=== PATIENT | female | born 1995 | race Caucasian/White ===

== ENCOUNTER 2020-08-24 14:10 | Observation (INO) | payer OTHER, SELFPAY ==
[2020-08-24] VITALS (7 sets, daily range): BP systolic 114–131; BP diastolic 64–74; PULSE 81–100; RESP 16; TEMP 37.2; BMI 28.3
--- NOTE | ~2020-08-24 | US_ITS ---
EXAMINATION: US OB limited DATE: 08/24/2020 16:08 INDICATION: Right lateral abdominal pain. Estimated gestational age of 29 weeks and 5 days. TECHNIQUE: Real-time ultrasound of the pelvis was performed. COMPARISON: None. FINDINGS: There is a single fetus in vertex presentation. The placenta is posterior. heart rate is 139 b eats per minute (bpm). The amniotic fluid volume is subjectively normal. The cervical length is 3.7 c m on transvaginal images, which is normal. IMPRESSION: 1. Single living fetus in vertex presentation. 2. Normal placenta and cervical length. Reviewed, dictated and finalized at location A.
--- NOTE | 2020-08-24 14:53 | OBADM ---
This patient, Fabi Lee, admitted to the OB room 116 at 1410 for observation for right sided abdominal pain. Patient/family oriented to hospital policies and general routines including ID bracelet, bed and alarms, visiting hours, pain management, procedures, bathroom and other care routines, personal items, smoking policy, room service/diet, and visiting hours. Patient/Family are encouraged to report perceived risks to care and to ask questions if they do not understand what they are told or what they should do.
[2020-08-24 15:09] LABS: Add Urine Microscopic? YES; Amorphous Sediment Urine Few; Appearance Urine Cloudy (Clear); Bacteria Urine Trace /hpf; Bilirubin Urine Negative (Negative); Blood Urine Negative (Negative); Color Urine Yellow (Yellow); Glucose Urine UA Negative (Negative); Ketones Urine Negative (Negative); Leukocyte Esterase Ur 1+ LEU/UL (Negative); Mucus Urine Rare /lpf; Nitrate Urine Negative (Negative); Protein Urine Negative (Negative); RBC Urine 0-2 /hpf (0-2); Specific Grav Ur 1.015 (1.001-1.035); Squamous Epithelial Cell Urine Moderate /hpf (Few); Urobilinogen Urine Negative mg/dL (<2.0)
[2020-08-24] MEDS: TERBUTALINE SULFATE 1 MG/ML VIAL 0.25 MG SUB-Q ×2 (15:36→17:03)
[2020-08-24 15:46] LABS: Hematocrit 36.7 % (37.0-47.0); Hemoglobin 12.2 g/dL (12.0-15.0); Mean Corpuscular HGB Conc 33.2 g/dl (32-36); Mean Corpuscular Volume 93.1 fl (80-100); Mean Platelet Volume 11.1 fl (7.4-10.4); Platelet Count Result 194 k/mm3 (150-375); Red Blood Count 3.94 M/mm3 (4.2-5.4); Red Cell Distribution Width 12.5 % (11.5-14.5); White Blood Count 15.7 K/mm3 (4.5-10.0)
[2020-08-24 15:58] LABS: Alanine Aminotransferase 13 U/L (4-35); Albumin Level 3.8 g/dL (3.5-5.1); Alkaline Phosphatase 90 U/L (38-126); Anion Gap 4 mmol/L (8-16); Aspartate Amino Transferase 22 U/L (14-36); Bilirubin,Total 0.2 mg/dL (0.2-1.3); Blood Urea Nitrogen 11 mg/dL (7-17); Calcium 9.3 mg/dL (8.4-10.2); Carbon Dioxide 27 mmol/L (22-30); Chloride 104 mmol/L (98-107); Estimated CRCL calculation 105 ml/min; Estimated Glomerular Filt Rate > 60; Glucose 91 mg/dL (65-105); Potassium 4.5 mmol/L (3.4-5.0); Sodium 135 mmol/L (137-145)
--- NOTE | 2020-08-24 17:40 | P.PNOB_ITS ---
OB - Triage/Final Diagnosis Visit Information Reason for evaluation: threatened labor Comments/Additional reasons for admission: I have assessed the risk for this patient, Fabi Lee, and determined that she would benefit from observation care. Evaluation Laboratory results: Laboratory Tests 08/24/20 08/24/20 08/24/20 14:47 15:34 15:34 WBC 15.7 H RBC 3.94 L Hgb 12.2 Hct 36.7 L MCV 93.1 MCH 31.0 MCHC 33.2 RDW 12.5 Plt Count 194 MPV 11.1 H Sodium 135 L Potassium 4.5 Chloride 104 Carbon Dioxide 27 Anion Gap 4 L BUN 11 Creatinine 0.70 Estim Creat Clear Calc 105 Estimated GFR > 60 Glucose 91 Calcium 9.3 Total Bilirubin 0.2 AST 22 ALT 13 Alkaline Phosphatase 90 Total Protein 7.0 Albumin 3.8 Urine Color Yellow Urine Appearance Cloudy H Urine pH 6.0 Ur Specific [place] 1.015 Urine Protein Negative Urine Glucose (UA) Negative Urine Ketones Negative Ur Blood (Man) Negative Urine Nitrate Negative Urine Bilirubin Negative Urine Urobilinogen Negative Leukocyte Esterase Rfl 1+ H Urine RBC 0-2 Urine WBC 7-9 H Ur Squamous Epith Cells Moderate H Amorphous Sediment Few H Urine Bacteria Trace Urine Mucus Rare Vital signs: Vital Signs - 24 hr 08/24/20 14:33 08/24/20 14:45 08/24/20 15:00 Temperature 99 F Pulse Rate 93 88 85 Respiratory Rate 16 Blood Pressure 131/70 124/67 119/71 08/24/20 15:36 08/24/20 16:12 08/24/20 17:00 Temperature Pulse Rate 81 100 95 Respiratory Rate Blood Pressure 124/74 114/68 122/64
== END 2020-08-24 18:55 | disposition home or self-care (01) ==
PROVIDERS: Admitting Provider Obstetrics & Gynecology; Visit Provider Obstetrics & Gynecology
DX: O47.03 False labor before 37 completed weeks of gestation, third trimester (principal); Z3A.29 29 weeks gestation of pregnancy
CPT/HCPCS: 36415; 76815; 80053; 81001; 85027; 87086; 96372; G0378; G0379; J3105

== ENCOUNTER 2020-10-18 03:17 | Inpatient (IN) | payer OTHER, SELFPAY ==
[2020-10-18] VITALS (58 sets, daily range): BP systolic 91–152; BP diastolic 34–115; PULSE 54–111; RESP 20; TEMP 36.5–37.2; O2SAT 99–100; BMI 30.2
[2020-10-18] MEDS: LACTATED RINGERS 1,000 ML 125 ML IV CONT ×5 (04:20→11:53)
[2020-10-18 04:21] LABS: Basophils Percent Auto 0.5 % (0.2-1.2); Eosinophils Absolute Auto 0.1 K/mm3 (0-0.3); Eosinophils Percent Auto 1.5 % (0-4.4); Hematocrit 35.5 % (37.0-47.0); Hemoglobin 11.7 g/dL (12.0-15.0); Immature Granulocyte Percent A 1.2 % (0-0.5); Lymphocytes Absolute Auto 2.05 K/mm3 (0.9-3.2); Lymphocytes Percent Auto 23.9 % (18.3-44.2); Mean Corpuscular Hemoglobin 29.9 pg (26-34); Mean Corpuscular Volume 90.8 fl (80-100); Mean Platelet Volume 11.8 fl (7.4-10.4); Monocytes Absolute Auto 0.7 K/mm3 (0.1-0.6); Monocytes Percent Auto 7.6 % (2.6-8.5); Neutrophils Absolute Auto 5.6 K/mm3 (1.3-6.7); Neutrophils Percent Auto 65.3 % (45.5-73.1); Platelet Count Result 197 k/mm3 (150-375); Red Blood Count 3.91 M/mm3 (4.2-5.4); Red Cell Distribution Width 12.7 % (11.5-14.5); White Blood Count 8.6 K/mm3 (4.5-10.0)
--- NOTE | 2020-10-18 06:10 | WPDANESEPP ---
Anes - Eval Pre Procedure Procedure: Labor epidural Date/Time: 10/18/20 06:10 Surgeon: chrissy Preop Diagnosis: Abd pain with contractions Pre Op Diagnosis: SROM Patient Data Age: 25 Gender: F Height: 5 ft 4 in Weight: 80 kg Last Vital Signs Temp 97.8 F 10/18/20 04:20 Pulse 74 10/18/20 05:46 BP 134/83 10/18/20 05:46 Allergies Allergy/AdvReac Type Severity Reaction Status Date / Time No Known Allergies Allergy Verified 10/07/20 15:35 Home Medications Medication Instructions Recorded Confirmed Type PNV cmb#95-ferrous fumarate-FA 1 tablet PO DAILY 08/24/20 08/24/20 History [] Laboratory Tests 10/18/20 03:51 WBC 8.6 K/mm3 K/mm3 (4.5-10.0) RBC 3.91 M/mm3 L M/mm3 (4.2-5.4) Hgb 11.7 g/dL L g/dL (12.0-15.0) Hct 35.5 % L % (37.0-47.0) MCV 90.8 fl fl (80-100) MCH 29.9 pg pg (26-34) MCHC 33.0 g/dl g/dl (32-36) RDW 12.7 % % (11.5-14.5) Plt Count 197 k/mm3 k/mm3 (150-375) MPV 11.8 fl H fl (7.4-10.4) Immature Gran % (Auto) 1.2 % H % (0-0.5) Neut % (Auto) 65.3 % % (45.5-73.1) Lymph % (Auto) 23.9 % % (18.3-44.2) [place] % (Auto) 7.6 % % (2.6-8.5) Eos % (Auto) 1.5 % % (0-4.4) Baso % (Auto) 0.5 % % (0.2-1.2) Lymph # (Auto) 2.05 K/mm3 K/mm3 (0.9-3.2) [place] # (Auto) 0.7 K/mm3 H K/mm3 (0.1-0.6) Eos # (Auto) 0.1 K/mm3 K/mm3 (0-0.3) Baso # (Auto) 0.0 K/mm3 K/mm3 (0.0-0.1) Abs Immat Gran (auto) 0.10 K/mm3 H K/mm3 (0.00-0.031) Absolute Neuts (auto) 5.6 K/mm3 K/mm3 (1.3-6.7) Absolute Nucleated RBC 0.0 K/mm3 K/mm3 (0.0-0.012) Nucleated RBC % 0.0 % % (0.0-0.2) Patient hx anesthesia problems: none Family hx anesthesia problems: none [facility] Past Medical History Medical History Anxiety Over weight and not yet delivered Family History Family History Father Schizophrenia Bipolar 1 disorder Type 2 diabetes mellitus Testicle cancer Depression Sibling ALL (acute lymphoblastic leukemia) CML (chronic myelocytic leukemia) FH: bone marrow transplant Grandparent Cerebrovascular accident Schizophrenia Bipolar 1 disorder Depression Breast cancer in female Lung cancer Social History Social History Smoking status: Never smoker Substance use: never Spiritual care concerns: No Exam Day of Procedure 10/18/20 06:10 Patient weight: overweight Airway: Mallampati scale class II Neurological: alert and oriented
[2020-10-18 06:47] LABS: Rapid Plasma Reagin Non-Reactive (NonReactive)
--- NOTE | 2020-10-18 07:18 | PM.IMHP ---
H&P: HPI History of Present Illness Date/Time: 10/18/20 07:18 25-year-old para 0 whose last menstrual period was 01/29/2020, EDC 11/04/2020, presents at 37 and half weeks gestation with spontaneous rupture membranes prior to admission. Her has been uncomplicated and she is negative for group B strep Chief Complaint: Ruptured membranes Review of Systems Review of Systems: All systems reviewed & are unremarkable except as noted in HPI and below PMFSH Past Medical History Medical History Anxiety Over weight and not yet delivered Family History Family History Father Schizophrenia Bipolar 1 disorder Type 2 diabetes mellitus Testicle cancer Depression Sibling ALL (acute lymphoblastic leukemia) CML (chronic myelocytic leukemia) FH: bone marrow transplant Grandparent Cerebrovascular accident Schizophrenia Bipolar 1 disorder Depression Breast cancer in female Lung cancer Social History Social History Smoking status: Never smoker Substance use: never Spiritual care concerns: No Meds Home Medications and Allergies Home Medications Medication Instructions Recorded Confirmed Type PNV cmb#95-ferrous fumarate-FA 1 tablet PO DAILY 08/24/20 08/24/20 History [] Allergies Allergy/AdvReac Type Severity Reaction Status Date / Time No Known Allergies Allergy Verified 10/07/20 15:35 Vital Signs Vital Signs - 24 hr 10/18/20 03:45 10/18/20 04:20 10/18/20 04:30 Temperature 97.8 F Pulse Rate 72 72 Blood Pressure 134/80 126/87 10/18/20 04:45 10/18/20 05:15 10/18/20 05:31 Temperature Pulse Rate 76 62 78 Blood Pressure 118/73 128/81 123/81 10/18/20 05:46 10/18/20 06:15 10/18/20 06:30 Temperature Pulse Rate 74 65 63 Blood Pressure 134/83 129/81 123/82 10/18/20 07:01 10/18/20 07:15 Temperature Pulse Rate 67 78 Blood Pressure 131/78 122/75 Exam Const: General: no acute distress Eyes: General: appearance normal, both eyes and all related structures Neck: Neck: supple and no JVD Thyroid: thyroid normal Resp: Effort & Inspection: normal respiratory effort Auscultation: clear to auscultation bilaterally Cardio: Rate: regular rate Rhythm: regular rhythm GI: Inspection: non-distended GI Palp: Yes Soft to palpation, No Tenderness to palpation present (GI) and No Guarding due to palpation present (GI) Auscultation: normal bowel sounds : General: Yes bladder normal to palpation External Female Exam: normal external appearance Speculum Exam - Vagina: normal vaginal discharge and No vaginal bleeding Speculum Exam - Cervix: nontender Bimanual exam- vagina & uterus: bladder normal to palpation and No Cervical tenderness present OB/external & speculum: No vaginal bleeding Skin: General skin exam: no rashes or lesions noted Extrem: General: normal to inspection and no edema Psych: Mental Status: mental status grossly normal Affect: normal affect H&P: Results Labs Labs: Short CBC 10/18/20 Range/Units 03:51 WBC 8.6 (4.5-10.0) K/mm3 Hgb 11.7 L (12.0-15.0) g/dL Hct 35.5 L (37.0-47.0) % Plt Count 197 (150-375) k/mm3 Assessment and Plan Additional Plan Impression: 37 half week with spontaneous rupture membranes Plan: Spontaneous vaginal delivery is expected. She has an epidural candidate
--- NOTE | 2020-10-18 10:38 | P.PNOB_ITS ---
OB - PN: Subj Subjective Date/time seen: 10/18/20 10:38 cx 5 by rn exam fhts reassuring epidural working OB - PN: Obj Data Labs CBC & Chem 7: 10/18/20 03:51 Labs: Laboratory Results - last 24 hr 10/18/20 10/18/20 10/18/20 03:51 03:51 03:51 WBC 8.6 RBC 3.91 L Hgb 11.7 L Hct 35.5 L MCV 90.8 MCH 29.9 MCHC 33.0 RDW 12.7 Plt Count 197 MPV 11.8 H Immature Gran % (Auto) 1.2 H Neut % (Auto) 65.3 Lymph % (Auto) 23.9 [place] % (Auto) 7.6 Eos % (Auto) 1.5 Baso % (Auto) 0.5 Lymph # (Auto) 2.05 [place] # (Auto) 0.7 H Eos # (Auto) 0.1 Baso # (Auto) 0.0 Abs Immat Gran (auto) 0.10 H Absolute Neuts (auto) 5.6 Absolute Nucleated RBC 0.0 Nucleated RBC % 0.0 RPR Non-reactive Blood Type O Positive Antibody Screen Negative OB - PN A/P Time Spent With Patient Time: Total time spent is greater than 50% in coordination of care (as documented) at patient's floor/unit and/or counseling patient:
[2020-10-18] MEDS: OXYTOCIN 30 UNITS/NS 500 ML 30 UNITS/500 ML BAG 125 UNITS IV CONT (11:48)
--- NOTE | 2020-10-18 12:36 | P.PNOB_ITS ---
OB - PN: Subj Subjective Date/time seen: 10/18/20 12:36 cx ant lip fhts reassuring OB - PN: Obj Data Labs CBC & Chem 7: 10/18/20 03:51 Labs: Laboratory Results - last 24 hr 10/18/20 10/18/20 10/18/20 03:51 03:51 03:51 WBC 8.6 RBC 3.91 L Hgb 11.7 L Hct 35.5 L MCV 90.8 MCH 29.9 MCHC 33.0 RDW 12.7 Plt Count 197 MPV 11.8 H Immature Gran % (Auto) 1.2 H Neut % (Auto) 65.3 Lymph % (Auto) 23.9 [place] % (Auto) 7.6 Eos % (Auto) 1.5 Baso % (Auto) 0.5 Lymph # (Auto) 2.05 [place] # (Auto) 0.7 H Eos # (Auto) 0.1 Baso # (Auto) 0.0 Abs Immat Gran (auto) 0.10 H Absolute Neuts (auto) 5.6 Absolute Nucleated RBC 0.0 Nucleated RBC % 0.0 RPR Non-reactive Blood Type O Positive Antibody Screen Negative OB - PN A/P Time Spent With Patient Time: Total time spent is greater than 50% in coordination of care (as documented) at patient's floor/unit and/or counseling patient:
--- NOTE | 2020-10-18 14:03 | PM.OBPRVD ---
OB - Delivery Note Procedure Delivery date: 10/18/20 Intrapartal events: None Induction method: none Delivery augmentation: pitocin Delivery monitor: external FHT Route of delivery: Episiotomy description: None Laceration Description: Perineal - 1st Degree Delivery repair: vicryl Specimen: No Quantitative Blood Loss (ml): 58 Anesthesia type: Epidural Disposition: floor Baby Date of : 10/18/20 Time of : 13:54 Weeks of gestation at delivery: 37 gender: Male presentation: vertex position: Right Occiput Anterior Placenta delivery description: Spontaneous cord vessel description: 3 Vessels and Nuchal Cord score one minute: 8 score five minutes: 8
[2020-10-18] MEDS: IBUPROFEN 600 MG TABLET PO (19:30)
--- NOTE | 2020-10-18 21:51 | PC.NURSE ---
1722 Pt admitted to room 291 per wheelchair from labor and delivery after vaginal delivery today with Dr. Jone Eubanks for Dr. Gregory. Mother is a and is choosing to bottle feed infant; FOB present; couple oriented to room, staffing and procedures; admission folder reviewed. Pt's VSS and assessment WNL.
[2020-10-19] VITALS: BP 126/86; PULSE 69; RESP 18; TEMP 36.6; O2SAT 100
[2020-10-19 04:20] VITALS: BP 124/72; PULSE 64; RESP 18; TEMP 36.6; O2SAT 100
[2020-10-19] MEDS: IBUPROFEN 600 MG TABLET PO ×2 (04:34→11:05)
[2020-10-19 04:55] LABS: Hematocrit 31.2 % (37.0-47.0); Hemoglobin 10.1 g/dL (12.0-15.0)
--- NOTE | 2020-10-19 07:05 | PM.OBPNVD ---
OB - PN: Subj Subjective Date/time seen: 10/19/20 07:05 Patient comments: no complaints and pain well controlled baby status: doing well and nursing well OB - PN: Obj Data Labs CBC & Chem 7: 10/19/20 04:27 Labs: Laboratory Results - last 24 hr 10/19/20 04:27 Hgb 10.1 L Hct 31.2 L OB - PN A/P Plan day: 1 Plan: routine care Time Spent With Patient Time: Total time spent is greater than 50% in coordination of care (as documented) at patient's floor/unit and/or counseling patient: Time with patient: less than 15 minutes Review of Systems Review of Systems: All systems reviewed & are unremarkable except as noted in HPI and below Exam Const: General: no acute distress Eyes: General: appearance normal, both eyes and all related structures Neck: Neck: supple and no JVD Thyroid: thyroid normal Resp: Effort & Inspection: normal respiratory effort Auscultation: clear to auscultation bilaterally Cardio: Rate: regular rate Rhythm: regular rhythm GI: Inspection: non-distended GI Palp: Yes Soft to palpation, No Tenderness to palpation present (GI) and No Guarding due to palpation present (GI) Auscultation: normal bowel sounds : General: Yes bladder normal to palpation External Female Exam: normal external appearance Speculum Exam - Vagina: normal vaginal discharge and No vaginal bleeding Speculum Exam - Cervix: nontender Bimanual exam- vagina & uterus: bladder normal to palpation and No Cervical tenderness present OB/external & speculum: No vaginal bleeding Skin: General skin exam: no rashes or lesions noted Extrem: General: normal to inspection and no edema Psych: Mental Status: mental status grossly normal Affect: normal affect
[2020-10-19] MEDS: BENZOCAINE 20% AER SPR (*SP) 56 GM CAN 1 SPRAY TOPICAL (07:41)
[2020-10-19] MEDS: WITCH HAZEL 40 PADS 1 PAD TOPICAL (07:42)
[2020-10-19] MEDS: DOCUSATE SODIUM 100 MG CAPSULE PO (07:42)
--- NOTE | 2020-10-19 07:44 | P.DS_ITS ---
DS: Admitting Diagnosis Admitting Diagnosis Admitting Diagnosis: term iup DS: Summary Hospital Course Hospital Course: Patient was admitted in active labor. She underwent spontaneous vaginal delivery. 24hour course was unremarkable. She remained afebrile. She was up, 1 in the difficulty, ambulating, breast-feeding, generalized complaints. Time Spent with Patient Time attestation: Total time spent providing and/or coordinating discharge services: Exam Const: General: no acute distress Eyes: General: appearance normal, both eyes and all related structures Neck: Neck: supple and no JVD Thyroid: thyroid normal Resp: Effort & Inspection: normal respiratory effort Auscultation: clear to auscultation bilaterally Cardio: Rate: regular rate Rhythm: regular rhythm GI: Inspection: non-distended GI Palp: Yes Soft to palpation, No Tenderness to palpation present (GI) and No Guarding due to palpation present (GI) Auscultation: normal bowel sounds : General: Yes bladder normal to palpation External Female Exam: normal external appearance Speculum Exam - Vagina: normal vaginal discharge and No vaginal bleeding Speculum Exam - Cervix: nontender Bimanual exam- vagina & uterus: bladder normal to palpation and No Cervical tenderness present OB/external & speculum: No vaginal bleeding Skin: General skin exam: no rashes or lesions noted Extrem: General: normal to inspection and no edema Psych: Mental Status: mental status grossly normal Affect: normal affect DS: Data Data Completed and Pending Labs on day of discharge: Labs from last 24 hours 10/19/20 04:27 Hgb 10.1 L Hct 31.2 L Discharge Plan Discharge Attending physician on discharge: Desmond Diaz Discharging Clinician: Desmond Diaz Patient Disposition: Home, Self-Care Activity: may shower, no straining and pelvic rest Diet: heart healthy Wound Care Instructions: follow printed instructions Patient Instructions: Antibiotic Form Stand Alone Forms: General Discharge Information Follow-up/Referrals: Daniel Gregory MD [Physician] - Discharge Medications: Continued PNV cmb#95-ferrous fumarate-FA [] 28 mg iron- 800 mcg Tablet 1 tablet PO DAILY RF: 0 Date of admission: 10/18/20 03:17 Primary Care Provider: PHYSICIAN,[employer] Admitting Provider: Daniel Gregory Attending physician on admission: Daniel Gregory Condition: Stable
[2020-10-19 08:00] VITALS: BP 129/82; PULSE 73; RESP 18; TEMP 36.4; O2SAT 100
--- NOTE | 2020-10-19 08:48 | WPDANLDPN2 ---
Anes-Prog Note L&D Date/Time: 10/19/20 08:48 Comfortable throughout: labor and delivery Neuraxial method: epidural Epidural/Spinal procedure site: clean & non-tender Neuro status: Neuro function grossly intact. Cardiovascular status: normal Respiratory status: normal Airway patency: baseline Mental status: baseline Post-Op hydration status: normal Vital Signs: Last Vital Signs Temp 36.6 C 10/19/20 04:20 Pulse 64 10/19/20 04:20 Resp 18 10/19/20 04:20 BP 124/72 10/19/20 04:20 Pulse Ox 100 10/19/20 04:20 Pain score (VAS): 0 I/O: Intake & Output 10/18/20 10/19/20 10/19/20 23:59 07:59 15:59 Intake Total 500 Output Total 100 Balance 400 Post-procedural complaints: none Patient feedback: Patient satisfied with anesthetic care.
--- NOTE | 2020-10-19 11:00 | PC.NURSE ---
Patient viewed the discharge video Mother & Baby Care, The First Two Weeks . Patient was given the opportunity and encouraged to ask questions. Patient verbalized understanding of information shared and has been given the mother/baby guide for home reference.
--- NOTE | 2020-10-19 14:00 | PC.NURSE ---
Self care and infant care discharge instructions given including follow up visit date and time. MOther verbalized understanding. No questions or concerns voiced. Very pleasant and cooperative.
[2020-10-22 09:36] VITALS: BP 125/77; PULSE 87; RESP 20; TEMP 37.6; O2SAT 100
== END 2020-10-19 16:45 | disposition home or self-care (01) | DRG 807 ==
LOC: ANHLDR 03:57 → ANHOB2 10-19 07:45 → ANHLDR 10-23 10:24 → ANHOB2 10-23 10:24
PROVIDERS: Admitting Provider Obstetrics & Gynecology; Visit Provider Obstetrics & Gynecology
DX: O69.81X0 Labor and delivery complicated by cord around neck, without compression, not applicable or unspecified (principal); Z37.0 Single live birth; O70.0 First degree perineal laceration during delivery; Z3A.37 37 weeks gestation of pregnancy
CPT/HCPCS: 36415; 85014; 85018; 85025; 86592; 86850; 86900; 86901; A9270; J2590; J2795; J7120

== ENCOUNTER 2022-05-30 16:24 | Observation (INO) | payer OTHER, SELFPAY ==
[2022-05-30 19:30] VITALS: BMI 29.5
[2022-05-30] MEDS: LACTATED RINGERS 1,000 ML 999 ML IV CONT (19:30)
[2022-05-30 20:08] VITALS: PULSE 98; O2SAT 100
--- NOTE | 2022-05-30 20:51 | OBADM ---
This patient, Fabi Lee, admitted to the OB room Labor/Delivery/Recovery 105 for observation. Patient/family oriented to hospital policies and general routines including ID bracelet, bed and alarms, visiting hours, pain management, procedures, bathroom and other care routines, personal items, smoking policy, room service/diet, and visiting hours. Patient/Family are encouraged to report perceived risks to care and to ask questions if they do not understand what they are told or what they should do.
--- NOTE | 2022-06-03 14:19 | PM.OBTRLD ---
OB - Triage/Final Diagnosis Visit Information Comments/Additional reasons for admission: I have assessed the risk for this patient, Fabi Lee, and determined that she would benefit from observation care. Final Diagnosis (1) False labor: Code(s): O47.9 - False labor, unspecified Status: Acute
== END 2022-05-30 21:15 | disposition home or self-care (01) ==
PROVIDERS: Admitting Provider Obstetrics & Gynecology; Visit Provider Obstetrics & Gynecology
DX: O47.03 False labor before 37 completed weeks of gestation, third trimester (principal); Z3A.36 36 weeks gestation of pregnancy
CPT/HCPCS: G0378; G0379; J7120

== ENCOUNTER 2022-06-08 09:58 | Observation (INO) | payer OTHER, SELFPAY ==
[2022-06-08 10:30] VITALS: BP 123/73; PULSE 95
--- NOTE | 2022-06-08 10:49 | OBADM ---
This patient, Fabi Lee, admitted to the OB room Labor/Delivery/Recovery 105 for observation. pt states she has been bereket on and off for the weekend and wanted to be checked out. denies strong contractions, leaking fluid, vaginal bleeding. Patient/family oriented to hospital policies and general routines including ID bracelet, bed and alarms, visiting hours, pain management, procedures, bathroom and other care routines, personal items, smoking policy, room service/diet, and visiting hours. Patient/Family are encouraged to report perceived risks to care and to ask questions if they do not understand what they are told or what they should do.
--- NOTE | 2022-06-12 11:02 | PM.OBTRLD ---
OB - Triage/Final Diagnosis Visit Information Reason for evaluation: threatened labor Comments/Additional reasons for admission: I have assessed the risk for this patient, Fabi Karlos Jesus, and determined that she would benefit from observation care.
== END 2022-06-08 10:50 | disposition home or self-care (01) ==
PROVIDERS: Admitting Provider Obstetrics & Gynecology; Visit Provider Obstetrics & Gynecology
DX: O47.1 False labor at or after 37 completed weeks of gestation (principal); Z3A.37 37 weeks gestation of pregnancy
CPT/HCPCS: G0378; G0379

== ENCOUNTER 2022-06-18 04:55 | Inpatient (IN) | payer OTHER, SELFPAY ==
[2022-06-18] VITALS (107 sets, daily range): BP systolic 68–140; BP diastolic 30–89; PULSE 25–154; RESP 16–18; TEMP 36.4–37.1; O2SAT 95–100; BMI 29.7
--- NOTE | 2022-06-18 05:21 | LDADM ---
This patient, Fabi Lee, was admitted to Labor/Delivery/Recovery 105 on 06/18/22 at 04:55. Plans for labor, pain management and were discussed with patient. Patient/family oriented to hospital policies and general routines including ID bracelet, bed and alarms, visiting hours, pain management, procedures, bathroom and other care routines, personal items, smoking policy, room service/diet and guest tray routines, security routines, and visiting hours. Patient/Family are encouraged to report perceived risks to care and to ask questions if they do not understand what they are told or what they should do. See OBIX for further documentation.
[2022-06-18 05:37] LABS: Basophils Percent Auto 0.5 % (0.2-1.2); Eosinophils Absolute Auto 0.2 K/mm3 (0-0.3); Hematocrit 35.6 % (37.0-47.0); Hemoglobin 12.1 g/dL (12.0-15.0); Immature Granulocyte Absolute 0.11 K/mm3 (0.00-0.031); Immature Granulocyte Percent A 1.3 % (0-0.5); Lymphocytes Absolute Auto 2.23 K/mm3 (0.9-3.2); Lymphocytes Percent Auto 26.3 % (18.3-44.2); Mean Corpuscular Hemoglobin 31.3 pg (26-34); Mean Corpuscular Volume 92.2 fl (80-100); Mean Platelet Volume 11.3 fl (7.4-10.4); Monocytes Absolute Auto 0.4 K/mm3 (0.1-0.6); Monocytes Percent Auto 4.5 % (2.6-8.5); Neutrophils Absolute Auto 5.5 K/mm3 (1.3-6.7); Neutrophils Percent Auto 65.4 % (45.5-73.1); Platelet Count Result 202 k/mm3 (150-375); Red Blood Count 3.86 M/mm3 (4.2-5.4); Red Cell Distribution Width 12.9 % (11.5-14.5); White Blood Count 8.5 K/mm3 (4.5-10.0)
[2022-06-18] MEDS: LACTATED RINGERS 1,000 ML 125 ML IV CONT ×3 (05:57→10:41)
[2022-06-18] MEDS: OXYTOCIN 30 UNITS/NS 500 ML 30 UNITS/500 ML BAG IV CONT (05:57)
--- NOTE | 2022-06-18 06:31 | WPDANESEPP ---
Anes - Eval Pre Procedure Procedure: labor epidural Date/Time: 06/18/22 06:31 Preop Diagnosis: pain during labor Pre Op Diagnosis: IOL Patient Data Age: 27 Gender: F Height: 1.63 m Weight: 78.5 kg Last Vital Signs Temp 36.4 C L 06/18/22 05:30 Pulse 88 06/18/22 06:15 Resp 16 06/18/22 05:30 BP 119/66 06/18/22 06:15 O2 Del Method Room Air 06/18/22 05:21 Allergies Allergy/AdvReac Type Severity Reaction Status Date / Time No Known Allergies Allergy Verified 10/07/20 15:35 Home Medications Medication Instructions Recorded Confirmed Type vit no.95-ferrous 1 tablet PO DAILY 08/24/20 06/18/22 History fumarate 28 mg-folic acid 800 mcg tablet () Laboratory Tests 06/18/22 06/18/22 06/18/22 05:26 05:26 05:26 WBC 8.5 K/mm3 K/mm3 (4.5-10.0) RBC 3.86 M/mm3 L M/mm3 (4.2-5.4) Hgb 12.1 g/dL g/dL (12.0-15.0) Hct 35.6 % L % (37.0-47.0) MCV 92.2 fl fl (80-100) MCH 31.3 pg pg (26-34) MCHC 34.0 g/dl g/dl (32-36) RDW 12.9 % % (11.5-14.5) Plt Count 202 k/mm3 k/mm3 (150-375) MPV 11.3 fl H fl (7.4-10.4) Immature Gran % (Auto) 1.3 % H % (0-0.5) Neut % (Auto) 65.4 % % (45.5-73.1) Lymph % (Auto) 26.3 % % (18.3-44.2) [place] % (Auto) 4.5 % % (2.6-8.5) Eos % (Auto) 2.0 % % (0-4.4) Baso % (Auto) 0.5 % % (0.2-1.2) Lymph # (Auto) 2.23 K/mm3 K/mm3 (0.9-3.2) [place] # (Auto) 0.4 K/mm3 K/mm3 (0.1-0.6) Eos # (Auto) 0.2 K/mm3 K/mm3 (0-0.3) Baso # (Auto) 0.0 K/mm3 K/mm3 (0.0-0.1) Abs Immat Gran (auto) 0.11 K/mm3 H K/mm3 (0.00-0.031) Absolute Neuts (auto) 5.5 K/mm3 K/mm3 (1.3-6.7) Absolute Nucleated RBC 0.0 K/mm3 K/mm3 (0.0-0.012) Nucleated RBC % 0.0 % % (0.0-0.2) RPR Pending Blood Type O Positive Antibody Screen Negative Patient hx anesthesia problems: none Family hx anesthesia problems: none Results Review: All pre-operative results and documents have been reviewed as part of the pre-operative evaluation. [facility] Past Medical History Medical History Anxiety Over weight and not yet delivered Family History Family History Father Schizophrenia Bipolar 1 disorder Type 2 diabetes mellitus Testicle cancer Depression Sibling ALL (acute lymphoblastic leukemia) CML (chronic myelocytic leukemia) FH: bone marrow transplant Grandparent Cerebrovascular accident Schizophrenia Bipolar 1 disorder Depression Breast cancer in female Lung cancer Social History Social History Smoking status: Never smoker Substance use: never Lack of Transportation: No Lack of Food: Never True Current Housing: I Have Housing Concerned About Future Housing: No Difficulty Paying Gas/Electric Bills: No Difficulty Paying for Meds: No Currently Unemployed: No Education: Associate Degree Difficulty w/ Childcare or Family Care: No Spiritual care concerns: No Exam Day of Procedure 06/18/22 06:31
--- NOTE | 2022-06-18 09:00 | WPDOBADMIT ---
Obstetrics - Admit Note Admission Note: record reviewed. Additions to the history and/or subsequent changes in the physical findings follow. 27 y/o at 39 weeks here for scheduled induction of labor. GBS neg. AVSS NST reactive TOCO: contractions every 2-3 min ABD soft, nontender, gravid, vertex EXT nontender Cervix 5/50/-2. AROM with clear fluid. Vertex. A: IUP at 39 weeks with favorable cervix, desiring induction. P: Oxytocin. Anticipate .
--- NOTE | 2022-06-18 11:40 | P.PCNOB_ITS ---
OB - Delivery Note Procedure Delivery date: 06/18/22 Procedure: Induction of labor with Induction method: Per Pitocin Protocol Delivery augmentation: Rupture of Membranes Delivery monitor: External FHT and External Uterine Route of delivery: Laceration Description: Perineal - 1st Degree Delivery repair: vicryl (3-0) Specimen: Yes (cord blood) Quantitative Blood Loss (ml): 130 Anesthesia type: Epidural Disposition: PACU Complications: None Narrative: 27 y/o at 39 weeks gestation who presented to the hospital for induction of labor. Oxytocin was administered intravenously. Amniotomy was performed with return of clear fluid. She received an epidural for pain control. Her labor progressed and her cervix dilated completely. She pushed with good effort and delivered the 's head to the perineum, followed by the body. The nose and mouth were bulb suctioned. After a delay, the cord was clamped and cut. The infant was handed off the field. Cord blood was collected. The placenta delivered spontaneously and was grossly normal in appearance. The usual 3 vessel cord was noted. A first degree midline perineal laceration was sustained. This was reapproximated using 3 0 Vicryl in the usual layered fashion. Excellent hemostasis resulted as did excellent reapproximation of the normal anatomy. Needle and instrument counts were correct. The patient was taken to recovery room in stable condition. The infant went to the nursery in stable condition. I was present and scrubbed for the entire delivery. [place] Date of : 06/18/22 Time of : 11:20 Weeks of gestation at delivery: 39 gender: Male Weight (pounds): 8 presentation: vertex position: Left Occiput Anterior Placenta delivery description: Spontaneous and Normal Configuration Cord Vessel Description: 3 Vessels and Delayed Cord Clamping score one minute: 8 score five minutes: 9
--- NOTE | 2022-06-18 11:43 | PM.OBDSVD ---
DS: Admitting Diagnosis Discharge Date 06/19/22 Admitting Diagnosis IUP at 39 weeks DS: Discharge Diagnosis Discharge Diagnosis (1) (normal spontaneous vaginal delivery): Code(s): O80 - Encounter for full-term uncomplicated delivery Status: Acute OB - DS: Summary OB Procedures : None OB Procedures Intrapartum: Spontaneous Vag Delivery OB Procedures: : None Time Spent with Patient Time attestation: Total time spent providing and/or coordinating discharge services: DS: Data Data Completed and Pending Labs on day of discharge: Labs from last 24 hours 06/18/22 06/18/22 06/18/22 05:26 05:26 05:26 WBC 8.5 RBC 3.86 L Hgb 12.1 Hct 35.6 L MCV 92.2 MCH 31.3 MCHC 34.0 RDW 12.9 Plt Count 202 MPV 11.3 H Immature Gran % (Auto) 1.3 H Neut % (Auto) 65.4 Lymph % (Auto) 26.3 [place] % (Auto) 4.5 Eos % (Auto) 2.0 Baso % (Auto) 0.5 Lymph # (Auto) 2.23 [place] # (Auto) 0.4 Eos # (Auto) 0.2 Baso # (Auto) 0.0 Abs Immat Gran (auto) 0.11 H Absolute Neuts (auto) 5.5 Absolute Nucleated RBC 0.0 Nucleated RBC % 0.0 RPR Pending Blood Type O Positive Antibody Screen Negative Discharge Plan Discharge Attending physician on discharge: Daniel Gregory Consulting providers: Desmond Joshi ; Alejandrina Larsen Discharging Clinician: Daniel Gregory Patient Disposition: Home, Self-Care Activity: may shower, may drive after 2 weeks and pelvic rest Diet: regular Wound Care Instructions: follow printed instructions Discharge Instructions: Call or return if temperature above 100.4? F, increased abdominal pain, increased vaginal bleeding or any new problems. Education: Mom and Baby Guide Given to: Mother Follow-Up: Call your delivering provider's office for an appointment to be seen in: call office for appointment Mom and baby should come to the [facility] for the follow-up appointment. Appointment Date/Time: June 20, 2022 at 9:00 am What to expect at your follow-up visit: Physical Assessment Call [phone] if you are unable to keep your appointment time. BREAST CARE: * Wear a snug supportive bra. * For engorgement discomfort: Bottle Feeding: * May apply ice packs PERINEAL CARE: * Until bleeding stops, use your hugh bottle after urinating * Change your pad frequently throughout the day * You may take sitz baths several times a day (fill your bathtub with warm water and soak for 20 minutes.) Do NOT bathe in the water * No tub baths until seen by your physician - You may shower ACTIVITY: * Rest as much as possible. * Do not exercise or lift anything heavier than your baby (such as laundry or other children.) * Avoid stairs or driving as much as possible. * Do not put anything into the vagina. No douching, tampons, or sexual activity until seen by physician. NOTIFY PHYSICIAN IF YOU HAVE ANY QUESTIONS OR IF ANY OF THE FOLLOWING SYMPTOMS OCCUR: * If your perineum becomes red, swollen, or more painful than what you have experienced in the hospital. * If your vaginal bleeding becomes foul smelling. * If your vaginal bleeding becomes more heavy than a period or if your bleeding changes from pink to bright red. However, you may pass an occasional walnut-sized clot once or twice for the first week . * If you experience a sharp, shooting pain in you calves. * If you discover a hard, reddened area on your breast or if you experience flu-like symptoms. DIET: * Eat regular, well-balanced meals. * Drink plenty of fluids daily. Stand Alone Forms: General Discharge Information Follow-up/Referrals: Daniel Gregory MD [Physician] - 6 Weeks Discharge Medications: New ibuprofen 600 mg tablet 600 mg PO Q6H PRN (Reason: cramps) Qty: 30 0RF Continued PNV [id number] fumarate-FA [] 28 mg iron- 800 mcg Tablet 1 tablet PO DAILY Date o
[2022-06-18] MEDS: OXYTOCIN 30 UNITS/NS 500 ML 30 UNITS/500 ML BAG 125 UNITS IV CONT (11:45)
--- NOTE | 2022-06-18 14:26 | PC.NURSE ---
Patient transferred to post room #279 via wheelchair. Support person present. Oriented to unit, room, information board, rooming in, admission packet and security measures. Patient verbalizes understanding.
[2022-06-18] MEDS: IBUPROFEN 600 MG TABLET PO ×2 (15:52→23:29)
[2022-06-18 16:07] LABS: Rapid Plasma Reagin Non-Reactive (NonReactive)
[2022-06-19 04:00] VITALS: BP 111/72; PULSE 60; RESP 18; TEMP 36.3; O2SAT 100
[2022-06-19 05:10] LABS: Hematocrit 31.4 % (37.0-47.0); Hemoglobin 10.5 g/dL (12.0-15.0)
--- NOTE | 2022-06-19 06:32 | PM.OBPNVD ---
OB - PN: Subj Subjective Date/time seen: 06/19/22 06:32 Patient comments: no complaints and pain well controlled baby status: doing well and nursing well OB - PN: Obj Data Labs 06/19/22 04:25 Labs: Laboratory Results - last 24 hr 06/18/22 06/19/22 05:26 04:25 Hgb 10.5 L Hct 31.4 L RPR Non-reactive OB - PN A/P Plan day: 1 Plan: routine care Time Spent With Patient Time: Total time spent is greater than 50% in coordination of care (as documented) at patient's floor/unit and/or counseling patient: Time with patient: less than 15 minutes Exam Const: General: cooperative, healthy appearing and comfortable Nutritional Appearance: average body habitus Orientation/consciousness: oriented to person, oriented to place and oriented to time HENMT: Head: normal to inspection Resp: Effort & Inspection: normal respiratory effort Cardio: Rate: regular rate Rhythm: regular rhythm Heart sounds: S1 normal heart sound present and S2 normal heart sound present GI: Inspection: normal to inspection
[2022-06-19 07:45] VITALS: BP 110/75; PULSE 63; RESP 14; TEMP 36.6; O2SAT 99
[2022-06-19] MEDS: IBUPROFEN 600 MG TABLET PO (10:17)
[2022-06-20 09:00] VITALS: BP 121/81; PULSE 68; RESP 18; TEMP 37.1; O2SAT 99
== END 2022-06-19 13:05 | disposition home or self-care (01) | DRG 807 ==
LOC: ANHLDR 11:43 → ANHOB2 14:30
PROVIDERS: Admitting Provider Obstetrics & Gynecology; Visit Provider Obstetrics & Gynecology
DX: O70.0 First degree perineal laceration during delivery (principal); Z37.0 Single live birth; Z3A.39 39 weeks gestation of pregnancy
CPT/HCPCS: 36415; 85014; 85018; 85025; 86592; 86850; 86900; 86901; A9270; J2590; J2795; J7120